=== PATIENT | female | born 1960 | race African-American/Black ===

== ENCOUNTER 2025-06-25 08:37 | Day surgery (SDC) | payer BC, OTHER, SELFPAY ==
[2025-06-25 09:24] VITALS: BP 143/79; PULSE 71; RESP 18; TEMP 36.2; O2SAT 100
[2025-06-25] MEDS: LACTATED RINGERS 1,000 ML 42 ML IV (09:38)
--- NOTE | 2025-06-25 09:59 | PM.HP.IH.1 ---
History of Present Illness History of Present Illness Date Patient Seen: 06/25/25 Time Patient Seen: 09:59 Chief complaint: Screening Colonoscopy Narrative: Luh is a 65-year-old woman here for a screening colonoscopy. Her last one was about 10 years ago. She was not certain if polyps were removed. No family history of colon cancer. [facility] Social History Smoking Status: Former smoker Meds Home Medications and Allergies Home Medications ?Medication ?Instructions ?Recorded ?Confirmed ?Type sodium,potassium,mag sulfates 17.5 See Rx Instructions PO .COMPLEX 05/18/25 Rx gram-3.13 gram-1.6 gram oral soln #354 mL (Suprep Bowel Prep Kit) amlodipine 10 mg tablet 10 mg PO DAILY 06/25/25 06/25/25 History apixaban 5 mg tablet (Eliquis) 2.5 mg PO BID 06/25/25 06/25/25 History atorvastatin 20 mg tablet 20 mg PO QPM cholesterol 06/25/25 06/25/25 History clonidine HCl 0.3 mg tablet 0.3 mg PO BID blood pressure 06/25/25 06/25/25 History dextroamphetamine-amphetamine ER 2 cap PO QAM 06/25/25 06/25/25 History 20 mg 24hr capsule,extend release fluticasone propionate 50 1 spray intranasal BID 06/25/25 06/25/25 History mcg/actuation nasal spray,suspension levothyroxine 125 mcg tablet 125 mcg PO DAILY 06/25/25 06/25/25 History lidocaine 5 % topical patch patch topical 06/25/25 History losartan 100 mg tablet 100 mg PO DAILY blood pressure 06/25/25 06/25/25 History metformin 500 mg tablet 500 mg PO DAILY diabetes mellitus 06/25/25 06/25/25 History semaglutide 0.25 mg or 0.5 mg (2 mg SUBCUT 06/25/25 History mg/3 mL) subcutaneous pen injector (OzUlympix) spironolactone 25 mg tablet 25 mg PO BID 06/25/25 06/25/25 History trazodone 100 mg tablet 100 - 150 mg PO ONCE PM insomnia 06/25/25 06/25/25 History Allergies Allergy/AdvReac Type Severity Reaction Status Date / Time latex AdvReac Mild Hives Verified 06/25/25 09:23 Exam Vital Signs (past 8 hours): - 06/25/25 09:24 Temperature 97.2 F L Pulse Rate 71 Respiratory Rate 18 Blood Pressure 143/79 H Pulse Oximetry 100 Oxygen Delivery Method Room Air Oxygen Delivery Method Room Air Const Nutritional Appearance: obese Objective Labs Labs: Laboratory Results - last 24 hr 06/25/25 09:31 POC Whole Bld Glucose 99 Assessment & Plan Assessment and plan (1) Colon cancer screening: Status: Acute Plan Colonoscopy Time-Based Coding :: [TOTAL MINUTES] spent with patient and on the chart (including review of chart, obtaining history, exam, reviewing outside data, placing orders, documenting exam and treatment plan, and counseling patient) on [DATE]. [employer] Document charge(s): No
--- NOTE | 2025-06-25 10:35 | P.OP.COLON_ITS ---
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 The patient was connected to monitoring devices. A time-out was performed. Sedation was administered. Once the patient was adequately sedated, a digital rectal exam was performed and was normal. The scope was then inserted and advanced to the cecum where the appendiceal orifice was identified and photographed. The scope was then slowly withdrawn over greater than 6 minutes. The mucosa was thoroughly inspected. No abnormalities were found. The scope was retroflexed in the rectum. The scope was straightened and removed. The patient was awakened and brought to recovery. Scope withdrawal time: 12 minutes Sedation time: 23 minutes EBL: 0 Findings: Normal colon Estimated Blood Loss: 0 Complications: none Post-procedure Recommendations: Colonoscopy in 10 years Disposition: PACU
[2025-06-25 10:36] VITALS: BP 126/69; PULSE 81; RESP 18; TEMP 36.8; O2SAT 97
[2025-06-25 10:41] VITALS: BP 123/63; PULSE 75; RESP 14; O2SAT 100
[2025-06-25 10:57] VITALS: BP 122/74; PULSE 74; RESP 18; TEMP 36.3; O2SAT 97
== END 2025-06-25 11:05 | disposition home or self-care (01) ==
PROVIDERS: PCP Physician Assistant Medical; Referring Provider Surgery; Visit Provider Surgery
PROC: 0DJD8ZZ Inspection of Lower Intestinal Tract, Via Natural or Artificial Opening Endoscopic (ICD-10-PCS; CPT 45378; principal; 2025-06-25 10:00)
DX: Z12.11 Encounter for screening for malignant neoplasm of colon (principal); Z87.891 Personal history of nicotine dependence; E66.9 Obesity, unspecified
CPT/HCPCS: 45378; 82962; J2704; J7120